=== PATIENT | male | born 1995 | race Caucasian/White ===

== ENCOUNTER 2022-05-29 13:51 | Emergency (ER) | payer MEDICAID ==
[~2022-05-29] VITALS: Ht 177.8 cm; Wt 129.6 kg
[~2022-05-29 13:51] MED LIST: CEPH-571 PO; HYDR-4383 PO; IBUP-1986 PO; ONDA8TAB6 PO
[2022-05-29 13:57] VITALS: BP 159/98
[2022-05-29] MEDS ORDERED: IBUP-1986 PO (16:05)
[2022-05-29] MEDS ORDERED: AMOX-580 PO (16:05)
== END 2022-05-29 16:14 | disposition home or self-care (01) ==
LOC: ER 13:51
DX: K04.7 Periapical abscess without sinus (principal); J45.909 Unspecified asthma, uncomplicated; Z79.899 Other long term (current) drug therapy
CPT/HCPCS: 99283